=== PATIENT | male | born 1975 | race Caucasian/White ===

== ENCOUNTER 2022-02-12 00:26 | Emergency (ER) | payer OTHER ==
[~2022-02-12] VITALS: Ht 188 cm; Wt 209.0 kg
[2022-02-12 01:50] VITALS: BP 159/91
[2022-02-12] MEDS ORDERED: ACETAMINOPHEN 500 MG TABLET PO ONE (03:00)
[2022-02-12] MEDS ORDERED: KETOROLAC 60 MG/2 ML VIAL. IM ONE (03:00)
--- NOTE | 2022-02-12 03:34 | RAD ---
EXAM: AP, lateral and oblique views of the right knee AP and lateral views of the right tibia/fibula AP, oblique and lateral views of the right ankle DATE: 02/12/2022 2:15 AM INDICATION: Reason: pain, injury / Spl. Instructions: / History: COMPARISON: No Prior FINDINGS: No acute fracture or dislocation. Severe right knee joint osteoarthritis with medial compartment join t space effacement with cystic change with mild varus attenuation. No knee joint effusion. Calcaneal enthesophytes are seen. Midfoot degenerative changes are seen. IMPRESSION: 1. No acute fracture or dislocation. 2. Severe right knee joint osteoarthritis 3. Midfoot degenerative changes are seen. 4. Diffuse soft tissue swelling about the right lower leg and ankle. Electronically signed by: Toro Orellana MD (02/12/2022 3:32 AM) [facility]
[2022-02-12] MEDS ORDERED: IBUP-1007 PO (04:36)
--- NOTE | 2022-02-12 04:37 | PHYS DOC ---
Past Medical History Past Surgical History: Other Additional Past Surgical Histo: LEFT TOE AND RIGTH SHOULDER Smoking Status: Current Every Day Smoker Alcohol Use: Occasionally Adult General Chief Complaint Chief Complaint: ANKLE PROBLEM HPI HPI Morbidly obese 46-year-old male presents for evaluation of right knee and ankle discomfort after "twisting my knee and ankle" while trying to get into bed prior to arrival. Denies hitting or hurting any other part of his body during the episode. Not able to take any medication because it was locked up at the [facility] where he resides. Alert and oriented, ambulatory with a steady gait to his ED bed. Review of Systems Review of Systems A 12 point review of systems was completed and was negative except where noted in HPI above. Current Medications Current Medications Current Medications Medications (Trade) Dose Ordered Sig/Monalisa Start Time Stop Time Status Last Admin Dose Admin Acetaminophen (Tylenol) 1,000 mg 1X ONCE 02/12/22 03:00 02/12/22 03:01 DC 02/12/22 02:56 1,000 MG Ketorolac Tromethamine (Toradol Im) 60 mg 1X ONCE 02/12/22 03:00 02/12/22 03:01 DC 02/12/22 02:56 60 MG Allergies Allergies Allergies Coded Allergies Type Severity Reaction Last Updated Verified No Known Drug Allergies 02/12/22 No Physical Exam Physical Exam 46-year-old male appearing nontoxic and in no acute distress. Head is normocephalic and atraumatic. Neck is supple and nontender. Oropharynx is moist. Lungs are clear to auscultation at all stations. There is normal S1 and S2 without rubs or gallops and capillary refill is appropriate, less than 2 seconds globally. Abdomen is soft, nontender and nondistended. Skin is warm and dry without cyanosis, clubbing or edema. Psychiatrically, the patient demonstrates appropriate mood and affect and is alert. Evaluation of the extremities reveals BUEs and BLEs neurovascularly intact distally with 5, sensation distributions, radial, DP and PT pulses 2+ bilaterally, capillary refill less than 2 seconds, hands and feet warm and well-perfused. No dependent peripheral edema distally. No calf tenderness or swelling bilaterally. Homans test is negative bilaterally. There is mild discomfort with ranging to the extremes of range of motion at the right ankle and right knee. No erythema, warmth, swelling or joint irritability to the right ankle or right knee. Patient is able to bear weight on the right lower extremity. No discomfort with range of any other joints of the BUEs or BLEs. Current Patient Data Vital Signs Vital Signs Date Time Temp Pulse Resp B/P (MAP) Pulse Ox O2 Delivery O2 Flow Rate FiO2 02/12/22 01:50 98.1 82 14 159/91 (113) 93 Room Air 98.1 EKG EKG [] Radiology/Procedures Radiology/Procedures EXAM: AP, lateral and oblique views of the right knee AP and lateral views of the right tibia/fibula AP, oblique and lateral views of the right ankle DATE: 02/12/2022 2:15 AM INDICATION: Reason: pain, injury / Spl. Instructions: / History: COMPARISON: No Prior FINDINGS: No acute fracture or dislocation. Severe right knee joint osteoarthritis with medial compartment joint space effacement with cystic change with mild varus attenuation. No knee joint effusion. Calcaneal enthesophytes are seen. Midfoot degenerative changes are seen. IMPRESSION: 1. No acute fracture or dislocation. 2. Severe right knee joint osteoarthritis 3. Midfoot degenerative changes are seen. 4. Diffuse soft tissue swelling about the right lower leg and ankle. Electronically signed by: Toro Orellana MD (02/12/2022 3:32 AM) [facility] DICTATED and SIGNED BY: TORO ORELLANA MD DATE: 02/12/22327 Course & Med Decision Making Course & Med Decision Making Imaging unremarkable for any evidence of fracture. Patient is ambulatory and feels better after Toradol. Will discharge home with an ibuprofen course to follow-up very closely with primary care in the next couple of days. Patient understands that if he feels worse instead of better or develops other new symptoms of concern that he will need to return to the emergency department immediately for reevaluation. All questions are answered. Dragon Disclaimer Dragon Disclaimer This electronic medical record was generated, in whole or in part, using a voice recognition dictation system. Departure Departure Impression: Primary Impression: Acute pain of right knee Additional Impressions: Acute right ankle pain Fall from bed, initial encounter Disposition: HOME / SELF CARE / HOMELESS Condition: IMPROVED Referrals: ESPERANZA GIBSON PA-C (PCP) Patient Instructions: Knee Pain Additional Instructions: Follow-up very closely with your primary care doctor in the office in the next 2 to 4 days for a reevaluation of your symptoms and to discussion of next best steps in care. Take a 600 mg ibuprofen pill every 6 hours as needed for discomfort. Take with food to prevent stomach upset. For pain not well controlled with ibuprofen you may take one of your home tramadol pills as prescribed. Be careful because tramadol can make you sleepy so do not drive or work or operate machinery while taking it. Rest, ice and elevate your leg. Return to the emergency department right away for worsening symptoms of any kind or with any other new symptoms of concern. Scripts Ibuprofen (IBUPROFEN) 600 Mg Tablet 600 MG PO PRN Q6HRS PRN for PAIN, #24 TAB take with food or milk Prov: JULIA MARTINEZ MD 02/12/22 Problem Qualifiers JULIA MARTINEZ MD Feb 12, 2022 04:37
== END 2022-02-12 04:38 | disposition home or self-care (01) ==
LOC: ER 00:26
DX: M25.571 Pain in right ankle and joints of right foot (principal); M25.561 Pain in right knee; F17.200 Nicotine dependence, unspecified, uncomplicated; G89.11 Acute pain due to trauma; W06.XXXA Fall from bed, initial encounter; Y93.89 Activity, other specified; Y92.89 Other specified places as the place of occurrence of the external cause; Y99.8 Other external cause status
CPT/HCPCS: 73562; 73590; 73610; 96372; 99284; J1885